=== PATIENT | female | born 1980 | race Caucasian/White ===

== ENCOUNTER 2018-08-25 02:17 | Inpatient (IN) | payer MEDICAID ==
[2018-08-25] MEDS ORDERED: Acetaminophen 325 MG Tab PO PRN (02:43)
[2018-08-25] MEDS ORDERED: Ondansetron 4 MG/2 ML SDV IVPUSH PRN (02:43)
[2018-08-25] MEDS ORDERED: Lactated Ringers 1,000 ML IV SCH ×2 (02:45→10:00)
[2018-08-25] MEDS ORDERED: Sodium Chloride 0.9% 10 ML Syringe FLUSH PRN (09:51)
[2018-08-25] MEDS ORDERED: Oxytocin/Lactated Ringers 10 UNIT/1,000 ML BAG IV SCH ×2 (10:00)
[2018-08-25] MEDS ORDERED: Lidocaine 1% 50 ML MDV INJECT ONE (12:00)
[2018-08-25] MEDS ORDERED: Nicotine 21 MG/24 Hr Patch TRDERM ONE (12:56)
[2018-08-25] MEDS: Nalbuphine 10 MG/1 ML Vial IVPUSH PRN ×2 (15:05→17:11)
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
--- NOTE | 2018-08-25 17:53 | PCM.SN ---
- Free Text/Narrative Note: Stage I - Pt presented in early labor. AROM. Pitocin Progressed to complete with overall reassuring heart tones. STage II - of viable female. Weight 2650g, APGARS 8/9 at 1731. Head delivered in controlled manner, body and shoulders atraumatically. Positive cry. To maternal abdomen, cord clamped and cut. Stage III - of intact placenta. 3vc. No laceration. EBL 150.
[2018-08-25] MEDS ORDERED: Docusate Sodium 100 MG Cap PO PRN (18:50)
[2018-08-25] MEDS ORDERED: Measles, Mumps & Rubella Vaccine 0.5 ML SDV SUBCUT ONE (18:50)
[2018-08-25] MEDS ORDERED: Benzocaine/Menthol 20%-0.5% Spray 56 GM Canister TOP PRN (18:50)
[2018-08-25] MEDS ORDERED: Hydrocortisone Acetate 25 MG Supp RECTAL PRN (18:50)
[2018-08-25] MEDS ORDERED: Lanolin 100% Cream 7 GM Tube TOP PRN (18:50)
[2018-08-25] MEDS ORDERED: Witch Hazel Medicated Pads 40/Jar TOP PRN (18:50)
[2018-08-26] MEDS ORDERED: Ibuprofen 600 MG Tab PO PRN (02:44)
--- NOTE | 2018-08-26 07:10 | PCM.PNPP ---
- General Info Date of Service: 08/26/18 Functional Status: Reports: Pain Controlled - Review of Systems General: Reports: No Symptoms HEENT: Reports: No Symptoms Pulmonary: Reports: No Symptoms Cardiovascular: Reports: No Symptoms Gastrointestinal: Reports: No Symptoms Genitourinary: Reports: No Symptoms Musculoskeletal: Reports: No Symptoms Skin: Reports: No Symptoms Neurological: Reports: No Symptoms Psychiatric: Reports: No Symptoms - General Info Date of Service: 08/26/18 - Patient Data Vital Signs - Most Recent: Last Vital Signs Temp 36.5 C 08/26/18 01:44 Pulse 64 08/26/18 01:44 Resp 16 08/26/18 01:44 BP 97/69 08/26/18 01:44 Pulse Ox 96 08/26/18 01:44 Weight - Most Recent: 56.699 kg I&O - Last 24 Hours: Intake & Output 08/25/18 08/26/18 08/26/18 22:59 06:59 14:59 Intake Total 320 Balance 320 Lab Results - Last 24 Hours: Laboratory Results - last 24 hr 08/25/18 08/25/18 08/25/18 Range/Units 02:55 02:55 02:55 WBC (3.98-10.04) K/mm3 RBC (3.98-5.22) M/mm3 Hgb (11.2-15.7) gm/L Hct (34.1-44.9) % MCV (79.4-94.8) fl MCH (25.6-32.2) pg MCHC (32.2-35.5) g/dl RDW Std Deviation (36.4-46.3) fL Plt Count (182-369) K/mm3 MPV (9.4-12.3) fl Neut % (Auto) (34.0-71.1) % Lymph % (Auto) (19.3-51.7) % [place] % (Auto) (4.7-12.5) % Eos % (Auto) (0.7-5.8) Baso % (Auto) (0.1-1.2) % Neut # (Auto) (1.56-6.13) K/mm3 Lymph # (Auto) (1.18-3.74) K/mm3 Haakon # (Auto) (0.24-0.36) K/mm3 Eos # (Auto) (0.04-0.36) K/mm3 Baso # (Auto) (0.01-0.08) K/mm3 Manual Slide Review RPR Non-reactive Non-reactive (NONREACTIVE) Blood Type A POSITIVE Gel Antibody Screen Negative 08/25/18 08/26/18 Range/Units 10:20 05:08 WBC 6.95 7.77 (3.98-10.04) K/mm3 RBC 2.97 L 2.61 L (3.98-5.22) M/mm3 Hgb 7.8 L 6.9 L* (11.2-15.7) gm/L Hct 24.9 L 22.0 L (34.1-44.9) % MCV 83.8 84.3 (79.4-94.8) fl MCH 26.3 26.4 (25.6-32.2) pg MCHC 31.3 L 31.4 L (32.2-35.5) g/dl RDW Std Deviation 47.4 H 46.8 H (36.4-46.3) fL Plt Count 235 226 (182-369) K/mm3 MPV 9.9 11.0 (9.4-12.3) fl Neut % (Auto) 74.7 H (34.0-71.1) % Lymph % (Auto) 15.3 L (19.3-51.7) % [place] % (Auto) 7.8 (4.7-12.5) % Eos % (Auto) 1.3 (0.7-5.8) Baso % (Auto) 0.3 (0.1-1.2) % Neut # (Auto) 5.20 (1.56-6.13) K/mm3 Lymph # (Auto) 1.06 L (1.18-3.74) K/mm3 Haakon # (Auto) 0.54 H (0.24-0.36) K/mm3 Eos # (Auto) 0.09 (0.04-0.36) K/mm3 Baso # (Auto) 0.02 (0.01-0.08) K/mm3 Manual Slide Review Abnormal smear RPR (NONREACTIVE) Blood Type Gel Antibody Screen Med Orders - Current: Current Medications Acetaminophen (Tylenol) 650 mg PO Q4H PRN PRN Reason: Pain (mild 1-3) Last Admin: 08/26/18 01:42 Dose: 650 mg Benzocaine/Menthol (Dermoplast Pain Relief [place]) 0 gm TOP ASDIRECTED PRN PRN Reason: Perineal Comfort Measure Last Admin: 08/25/18 19:37 Dose: 1 canister Docusate Sodium (Colace) 100 mg PO BID PRN PRN Reason: Constipation Emollient Ointment (Lansinoh Hpa) 0 gm TOP ASDIRECTED PRN PRN Reason: Sore Nipples Hydrocortisone Acetate (Anucort-Hc) 25 mg RECTAL BID PRN PRN Reason: Hemorrhoid pain Ibuprofen (Motrin) 600 mg PO Q6H PRN PRN Reason: Pain Last Admin: 08/26/18 03:10 Dose: 600 mg Miscellaneous Information (Remove Patch) 1 ea TRDERM ONETIME ONE Stop: 08/26/18 13:01 Ondansetron HCl (Zofran) 4 mg IVPUSH Q4H PRN PRN Reason: Nausea/Vomiting Sodium Chloride (Saline Flush) 10 ml FLUSH ASDIRECTED PRN PRN Reason: Keep Vein Open Jenna Law (Tucks) 1 pad TOP ASDIRECTED PRN PRN Reason: Perineal Comfort Measure Last Admin: 08/25/18 19:37 Dose: 1 tub Discontinued Medications Lactated Ringer's (Ringers, Lactated) 1,000 mls @ 125 mls/hr IV ASDIRECTED RU Lactated Ringer's (Ringers, Lactated) 1,000 mls @ 100 mls/hr IV ASDIRECTED RU Last Admin: 08/25/18 11:02 Dose: 100 mls/hr Oxytocin/Lactated Ringer's (Pitocin In Lr 10 Units/1,000 Ml) 10 unit in 1,000 mls @ 12 mls/hr IV TITRATE RU; Protocol Last Titration: 08/25/18 15:40 Dose: 14 munits/min, 84 mls/hr Oxytocin/Lactated Ringer's (Pitocin In Lr 10 Units/1,000 Ml) 10 unit in 1,000 mls @ 500 mls/hr IV .CONTINUOUS RU; Protocol Lidocaine HCl (Xylocaine 1%) 50 ml INJECT ONETIME ONE Stop: 08/25/18 12:01 Last Admin: 08/25/18 18:12 Dose: Not Given Measles/Mumps/Rubella Vaccine Live (M-M-R Ii Vaccine) 0.5 ml SUBCUT .ONCE ONE Stop: 08/25/18 18:51 Nalbuphine HCl (Nubain) 10 mg IVPUSH Q2H PRN PRN Reason: Pain Last Admin: 08/25/18 17:11 Dose: 10 mg Nicotine (Habitrol) 21 mg TRDERM ONETIME ONE Stop: 08/25/18 12:57 Last Admin: 08/25/18 13:02 Dose: 21 mg - Infant Interaction Infant Disposition, : at Bedside Support Person: Significant Other - Recovery Exam Fundal Tone: Firm Fundal Level: 1 Fingerbreadths Below Umbilicus Fundal Placement: Midline Lochia Amount: Small Lochia Color: Rubra/Red Episiotomy/Laceration: None Bladder Status: Voiding Urinary Elimination: Voided - Exam General: Alert, Oriented HEENT: Pupils Equal Neck: Supple Lungs: Clear to Auscultation, Normal Respiratory Effort GI/Abdominal Exam: Normal Bowel Sounds, Soft, Non-Tender, No Organomegaly, No Distention, No Abnormal Bruit, No Mass, Pelvis Stable Extremities: Normal Inspection, Normal Range of Motion, Non-Tender, No Pedal Edema, Normal Capillary Refill Neurological: No New Focal Deficit Psy/Mental Status: Alert, Normal Affect, Normal Mood - Problem List Review Problem List Initiated/Reviewed/Updated: Yes - My Orders Last 24 Hours: My Active Orders 08/25/18 09:51 Sodium Chloride 0.9% [Saline Flush] 10 ml FLUSH ASDIRECTED PRN 08/25/18 09:54 Electronic Heart Tones Ext w TOCO [WOMSER] Routine Peripheral IV Insertion Adult [OM.PC] Routine 08/25/18 10:24 Consult to Case Management/Induction Heating Equipment Setter [CONS] Routine 08/25/18 18:50 Benzocaine/Menthol [Dermoplast Pain Relief [place]] See Dose Instructions TOP ASDIRECTED PRN Docusate Sodium [Colace] 100 mg PO BID PRN Hydrocortisone Acetate [Anucort-HC] 25 mg RECTAL BID PRN Lanolin [Lansinoh HPA] See Dose Instructions TOP ASDIRECTED PRN Witch Ani [Tucks] 1 pad TOP ASDIRECTED PRN 08/25/18 18:51 Patient Status [ADT] Routine Activity as Tolerated [RC] PER UNIT ROUTINE Assess Lochia [WOMSER] Per Unit Routine Assess Uterine Involution [WOMSER] Per Unit Routine Breast Pump [WOMSER] Per Unit Routine Medication Administration Instruction [OM.PC] Routine Perineal Care [OM.PC] Per Unit Routine Sitz Bath [OM.PC] Per Unit Routine 08/25/18 19:00 Heat Therapy [OM.PC] PRN 08/25/18 Breakfast Regular Diet [DIET] 08/26/18 02:44 Ibuprofen [Motrin] 600 mg PO Q6H PRN 08/26/18 13:00 Remove Patch 1 ea TRDERM ONETIME ONE 08/26/18 19:00 Heat Therapy [OM.PC] PRN - Assessment Assessment:: Doing well. PPD1. Tolerating anemia. - Plan Plan:: Doing well. Probable discharge tomorrow.
[2018-08-26] MEDS: Nicotine 21 MG/24 Hr Patch TRDERM SCH (15:37)
--- NOTE | 2018-08-27 10:45 | PCM.DCSUM1 ---
Discharge Summary - Hospital Course Free Text/Narrative:: Stage I - Pt presented in early labor. AROM. Pitocin Progressed to complete with overall reassuring heart tones. STage II - of viable female. Weight 2650g, APGARS 8/9 at 1731. Head delivered in controlled manner, body and shoulders atraumatically. Positive cry. To maternal abdomen, cord clamped and cut. Stage III - of intact placenta. 3vc. No laceration. EBL 150. HPI Initial Comments: Stage I - Pt presented in early labor. AROM. Pitocin Progressed to complete with overall reassuring heart tones. STage II - of viable female. Weight 2650g, APGARS 8/9 at 1731. Head delivered in controlled manner, body and shoulders atraumatically. Positive cry. To maternal abdomen, cord clamped and cut. Stage III - of intact placenta. 3vc. No laceration. EBL 150. Brief History: Stage I - Pt presented in early labor. AROM. Pitocin Progressed to complete with overall reassuring heart tones. STage II - of viable female. Weight 2650g, APGARS 8/9 at 1731. Head delivered in controlled manner, body and shoulders atraumatically. Positive cry. To maternal abdomen, cord clamped and cut. Stage III - of intact placenta. 3vc. No laceration. EBL 150. Diagnosis: Stroke: No - Discharge Data Discharge Date: 08/27/18 Discharge Disposition: Home, Self-Care 01 Condition: Good - Discharge Diagnosis/Problem(s) (1) 38 weeks gestation of SNOMED Code(s): 07013463 ICD Code: Z3A.38 - 38 WEEKS GESTATION OF Status: Acute Current Visit: Yes (2) Encounter for full-term uncomplicated delivery SNOMED Code(s): 317200579 ICD Code: O80 - ENCOUNTER FOR FULL-TERM UNCOMPLICATED DELIVERY Status: Acute Current Visit: Yes - Patient Summary/Data Complications: None Consults: Consultations 08/25/18 10:24 Consult to Case Management/[place] Worker [CONS] Routine Hospital Course: Uneventful - Patient Instructions Diet: Usual Diet as Tolerated Driving: Do Not Drive (48 hours of possible) Showering/Bathing: May Shower Notify Provider of: Fever, Increased Pain, Swelling and Redness, Drainage, Nausea and/or Vomiting - Discharge Plan *PRESCRIPTION DRUG MONITORING PROGRAM REVIEWED*: Not Applicable *COPY OF PRESCRIPTION DRUG MONITORING REPORT IN PATIENT LESLI: Not Applicable Home Medications: Home Meds Multivitamin [Daily Multiple Vitamin] 1 each PO DAILY 08/25/18 [History] Polyethylene Glycol 3350 [MiraLAX] 17 gm PO TID 08/25/18 [History] Acetaminophen [Tylenol] 650 mg PO Q6H PRN tablet 08/27/18 [Rx] Docusate Sodium [Colace] 100 mg PO BID PRN cap 08/27/18 [Rx] Ibuprofen [Motrin] 600 mg PO Q6H PRN tablet 08/27/18 [Rx] Lanolin [Lansinoh HPA] 1 applic TOP ASDIRECTED PRN tube 08/27/18 [Rx] Jenna Salazarel [Tucks] 1 pad TOP ASDIRECTED PRN pad 08/27/18 [Rx] Patient Handouts: Steps to Quit Smoking - Discharge Summary/Plan Comment DC Time >30 min.: No - Patient Data Vitals - Most Recent: Last Vital Signs Temp 98.1 F 08/27/18 08:56 Pulse 62 08/27/18 08:56 Resp 14 08/27/18 08:56 BP 110/69 08/27/18 08:56 Pulse Ox 97 08/27/18 08:56 Weight - Most Recent: 125 lb I&O - Last 24 hours: Intake & Output 08/26/18 08/27/18 08/27/18 22:59 06:59 14:59 Intake Total 440 Balance 440 Med Orders - Current: Current Medications Acetaminophen (Tylenol) 650 mg PO Q4H PRN PRN Reason: Pain (mild 1-3) Last Admin: 08/26/18 01:42 Dose: 650 mg Benzocaine/Menthol (Dermoplast Pain Relief [place]) 0 gm TOP ASDIRECTED PRN PRN Reason: Perineal Comfort Measure Last Admin: 08/25/18 19:37 Dose: 1 canister Docusate Sodium (Colace) 100 mg PO BID PRN PRN Reason: Constipation Emollient Ointment (Lansinoh Hpa) 0 gm TOP ASDIRECTED PRN PRN Reason: Sore Nipples Last Admin: 08/26/18 17:23 Dose: 1 tube Hydrocortisone Acetate (Anucort-Hc) 25 mg RECTAL BID PRN PRN Reason: Hemorrhoid pain Ibuprofen (Motrin) 600 mg PO Q6H PRN PRN Reason: Pain Last Admin: 08/26/18 03:10 Dose: 600 mg Miscellaneous Information (Remove Patch) 1 ea TRDERM Q24H RU Nicotine (Habitrol) 21 mg TRDERM DAILY RU Last Admin: 08/26/18 15:37 Dose: 21 mg Ondansetron HCl (Zofran) 4 mg IVPUSH Q4H PRN PRN Reason: Nausea/Vomiting Sodium Chloride (Saline Flush) 10 ml FLUSH ASDIRECTED PRN PRN Reason: Keep Vein Open Witannette Law (Tucks) 1 pad TOP ASDIRECTED PRN PRN Reason: Perineal Comfort Measure Last Admin: 08/25/18 19:37 Dose: 1 tub Discontinued Medications Lactated Ringer's (Ringers, Lactated) 1,000 mls @ 125 mls/hr IV ASDIRECTED RU Lactated Ringer's (Ringers, Lactated) 1,000 mls @ 100 mls/hr IV ASDIRECTED RU Last Admin: 08/25/18 11:02 Dose: 100 mls/hr Oxytocin/Lactated Ringer's (Pitocin In Lr 10 Units/1,000 Ml) 10 unit in 1,000 mls @ 12 mls/hr IV TITRATE RU; Protocol Last Titration: 08/25/18 15:40 Dose: 14 munits/min, 84 mls/hr Oxytocin/Lactated Ringer's (Pitocin In Lr 10 Units/1,000 Ml) 10 unit in 1,000 mls @ 500 mls/hr IV .CONTINUOUS RU; Protocol Lidocaine HCl (Xylocaine 1%) 50 ml INJECT ONETIME ONE Stop: 08/25/18 12:01 Last Admin: 08/25/18 18:12 Dose: Not Given Measles/Mumps/Rubella Vaccine Live (M-M-R Ii Vaccine) 0.5 ml SUBCUT .ONCE ONE Stop: 08/25/18 18:51 Last Admin: 08/26/18 10:09 Dose: 0.5 ml Miscellaneous Information (Remove Patch) 1 ea TRDERM ONETIME ONE Stop: 08/26/18 13:01 Last Admin: 08/26/18 15:36 Dose: 1 ea Nalbuphine HCl (Nubain) 10 mg IVPUSH Q2H PRN PRN Reason: Pain Last Admin: 08/25/18 17:11 Dose: 10 mg Nicotine (Habitrol) 21 mg TRDERM ONETIME ONE Stop: 08/25/18 12:57 Last Admin: 08/25/18 13:02 Dose: 21 mg
[2018-08-27] MEDS: Nicotine 21 MG/24 Hr Patch TRDERM SCH (12:35)
== END 2018-08-27 12:41 | disposition home or self-care (01) | DRG 807 ==
LOC: JD.OB 02:17 → OBSVTOIN 17:31 → JD.OB 17:32
PROVIDERS: ADMIT Obstetrics & Gynecology; ATTEND Obstetrics & Gynecology
PROC: 10E0XZZ Delivery of Products of Conception, External Approach (ICD-10-PCS; principal; 2018-08-25)
PROC: 10907ZC Drainage of Amniotic Fluid, Therapeutic from Products of Conception, Via Natural or Artificial Opening (ICD-10-PCS; 2018-08-25)
PROC: 3E033VJ Introduction of Other Hormone into Peripheral Vein, Percutaneous Approach (ICD-10-PCS; 2018-08-25)
DX: O99.334 Smoking (tobacco) complicating childbirth (principal); F17.210 Nicotine dependence, cigarettes, uncomplicated; O99.02 Anemia complicating childbirth; D64.9 Anemia, unspecified; Z23 Encounter for immunization; Z37.0 Single live birth; Z3A.38 38 weeks gestation of pregnancy
CPT/HCPCS: 36415; 59025; 59409; 80306; 81001; 85025; 85027; 86592; 86850; 86900; 86901; 90707; A9270-GY; J2300; J2590; J7120